=== PATIENT | female | born 1950 | race Caucasian/White ===

== ENCOUNTER 2025-06-28 15:52 | Emergency (ER) | payer MEDICARE, OTHER ==
[~2025-06-28] VITALS: Ht 165.1 cm; Wt 54.7 kg
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
--- NOTE | 2025-06-28 16:17 | ELECTROCARDIOGRAPH REPORT ---
[facility] Test Date: 2025-06-28 Test Time: 16:14:57 Pat Name: DEE DEE MEZA Department: [facility]- Patient ID: [id number] Room: Gender: F Drafting Supervisor: : [id number] Requested By: HENRY ARROYO Order Number: [id number] Reading MD: Measurements Intervals [place] Rate: 74 P: 65 MA: 175 QRS: -48 QRSD: 156 T: 54 QT: 454 QTc: 504 Interpretive Statements Sinus rhythm Right bundle branch block Please click the below link to view image of tracing.
--- NOTE | 2025-06-28 16:36 | RADIOLOGY REPORT ---
EXAM: DI CHEST,SINGLE VIEW HISTORY: CP COMPARISON: None TECHNIQUE: Portable upright AP view of the chest was performed. FINDINGS: There is a right chest tunneled dialysis catheter with its tip in the SVC -RA junction. No pneumothorax, consolidative infiltrates, or pulmonary edema. The heart is not enlarged. The aortic arch is calcific. There is mild thoracic levoscoliosis. There is an LAD stent. IMPRESSION: 1. Atherosclerotic vascular disease and LAD stent. 2. The lungs are clear.
[2025-06-28 16:39] VITALS: TEMP 98.4
[2025-06-28 17:22] LABS: MEAN PLATELET VOLUME 10.3 FL (7.4-10.4); RED CELL DISTRIBUTION WIDTH 13.6 % (11.5-14.5)
[2025-06-28 17:31] LABS: CREATININE 6.17 MG/DL (0.40-0.90); TOTAL CARBON DIOXIDE 26.1 MMOL/L (24-32); eCRCL 7 ML/MIN; eGFR 7 ML/MIN
[2025-06-28 17:38] LABS: PRO BRAIN NATRIURETIC PEPTIDE 7752 PG/ML (0-450)
[2025-06-28 20:21] VITALS: BP 201/86; PULSE 86; RESP 16; O2SAT 98
== END 2025-06-28 20:22 | disposition home or self-care (01) ==
LOC: ER 15:53 → EDBD 15:53 → ER 20:22
DX: N18.6 End stage renal disease (principal); I25.10 Atherosclerotic heart disease of native coronary artery without angina pectoris; Z88.0 Allergy status to penicillin; Z88.1 Allergy status to other antibiotic agents; Z88.5 Allergy status to narcotic agent; Z95.5 Presence of coronary angioplasty implant and graft
CPT/HCPCS: 36415; 71045; 80053; 82948; 83880; 84484; 85025; 93005; 99285